=== PATIENT | female | born 1980 | race Two or more races ===

== ENCOUNTER 2018-11-11 11:40 | Inpatient (IN) | payer BC ==
[~2018-11-11 11:40] MED LIST: ROCURONIUM BROMIDE INJ 50 MG/5 ML VIAL IV ONE; SUCCINYLCHOLINE CHLORIDE INJ 200 MG/10 ML VIAL ONE
--- NOTE | 2018-11-11 12:10 | ER Document Report ---
ED Medical Screen (RME) - General Chief Complaint: Chest Pain Stated Complaint: BACK/CHEST PAIN, CHILLS Time Seen by Provider: 11/11/18 12:06 Notes: 38-year-old female patient reports onset this morning 9 AM of left posterior thoracic pain going into the anterior chest. She states that hurts to breathe. It also causes her to feel short of breath. LMP was 2 months ago. I have greeted and performed a rapid initial assessment of this patient. A comprehensive ED assessment and evaluation of the patient, analysis of test results and completion of the medical decision making process will be conducted by additional ED providers. TRAVEL OUTSIDE OF THE [place] IN LAST 30 DAYS: No - Related Data Allergies/Adverse Reactions: No Known Allergies Allergy (Verified 11/11/18 11:41) Past Medical History Renal/ Medical History: Denies: Hx Peritoneal Dialysis Physical Exam - Vital signs Vitals: Temp Pulse Resp BP Pulse Ox 97.7 F 72 18 116/72 100 11/11/18 11:45 11/11/18 11:45 11/11/18 11:45 11/11/18 11:45 11/11/18 11:45 Course - Vital Signs Vital signs: Temp Pulse Resp BP Pulse Ox 97.7 F 72 18 116/72 100 11/11/18 11:45 11/11/18 11:45 11/11/18 11:45 11/11/18 11:45 11/11/18 11:45
--- NOTE | 2018-11-11 12:10 | EKG REPORT ---
SEVERITY:- NORMAL ECG - SINUS RHYTHM : Confirmed by: Sarthak Benjamin MD 11-Nov-2018 12:10:20
[2018-11-11] MEDS ORDERED: METOCLOPRAMIDE HCL ORAL SOLN 10 MG/10 ML UDCUP PO ONE (12:31)
[2018-11-11] MEDS ORDERED: MAG HYDROX/AL HYDROX/SIMETH SUSP 30 ML UDCUP PO ONE (12:31)
[2018-11-11] MEDS ORDERED: LIDOCAINE 2% VISCOUS SOLN 20 ML UDCUP PO ONE (12:31)
--- NOTE | 2018-11-11 12:46 | RADIOLOGY REPORT (SQ) ---
EXAM DESCRIPTION: CHEST 2 VIEWS COMPLETED DATE/TIME: 11/11/2018 12:29 pm REASON FOR STUDY: L post. thoracic ant. chest pleuritic pain COMPARISON: None. EXAM PARAMETERS: NUMBER OF VIEWS: two views TECHNIQUE: Digital Frontal and Lateral radiographic views of the chest acquired. RADIATION DOSE: NA LIMITATIONS: none FINDINGS: LUNGS AND PLEURA: No opacities, masses or pneumothorax. No pleural effusion. MEDIASTINUM AND HILAR STRUCTURES: No masses or contour abnormalities. HEART AND VASCULAR STRUCTURES: Heart normal size. No evidence for failure. BONES: No acute findings. HARDWARE: None in the chest. OTHER: No other significant finding. IMPRESSION: NO ACUTE RADIOGRAPHIC FINDING IN THE CHEST. TECHNICAL DOCUMENTATION: JOB ID: [id number] [employer]- All Rights Reserved Reading location - IP/workstation name: [email or web address]
[2018-11-11 13:50] LABS: APPEARANCE,URINE SLIGHTLY-CLOUDY; BILIRUBIN,URINE NEGATIVE (NEGATIVE); COLOR,URINE YELLOW; GLUCOSE, URINE NEGATIVE (NEGATIVE); KETONES,URINE NEGATIVE (NEGATIVE); LEUKOCYTE ESTERASE,URINE TRACE (NEGATIVE); NITRITE,URINE NEGATIVE (NEGATIVE); PROTEIN,URINE NEGATIVE (NEGATIVE); URINE SPECIFIC GRAVITY 1.008
[2018-11-11 14:11] LABS: ABSOLUTE BASOPHILS # (AUTO) 0.1 10^3/uL (0.0-0.2); ABSOLUTE LYMPHOCYTES (AUTO) 1.1 10^3/uL (0.5-4.7); BASOPHILS % (AUTO) 0.4 % (0-2); EOSINOPHILS % (AUTO) 0.1 % (0-6); TOTAL CELLS COUNTED % (AUTO) 100 %
[2018-11-11 14:18] LABS: ABSOLUTE NEUT (AUTO) 12.3 10^3/uL (1.7-8.2); HEMATOCRIT 39.6 % (36.0-47.0); HEMOGLOBIN 13.1 g/dL (12.0-15.5); LYMPHOCYTES % (AUTO) 7.4 % (13-45); MEAN CORPUSCULAR HEMOGLOBIN 29.7 pg (27.0-33.4); MEAN CORPUSCULAR VOLUME 90 fl (80-97); MONOCYTES % (AUTO) 6.8 % (3-13); PLATELET COUNT 326 10^3/uL (150-450); RED BLOOD COUNT 4.41 10^6/uL (3.72-5.28); SEGMENTED NEUTROPHILS % (AUTO) 85.3 % (42-78); WHITE BLOOD COUNT 14.5 10^3/uL (4.0-10.5)
[2018-11-11 14:33] LABS: ALANINE AMINOTRANSFERASE 56 U/L (9-52); ALBUMIN 4.8 g/dL (3.5-5.0); ALKALINE PHOSPHATASE 76 U/L (38-126); ANION GAP 9 (5-19); ASPARTATE AMINO TRANSFERASE 197 U/L (14-36); BILIRUBIN,DIRECT 0.6 mg/dL (0.0-0.4); BILIRUBIN,TOTAL 1.5 mg/dL (0.2-1.3); BLOOD UREA NITROGEN 11 mg/dL (7-20); CALCIUM 9.6 mg/dL (8.4-10.2); CARBON DIOXIDE 25 mmol/L (22-30); CHLORIDE 106 mmol/L (98-107); GLUCOSE 114 mg/dL (75-110); POTASSIUM 3.9 mmol/L (3.6-5.0); SODIUM 139.7 mmol/L (137-145); TOTAL PROTEIN 7.9 g/dL (6.3-8.2)
[2018-11-11] MEDS ORDERED: HYDROCODONE/ACETAMINOPHEN 5-325 MG TABLET PO ONE (14:39)
--- NOTE | 2018-11-11 14:45 | ER Document Report ---
ED General - General Chief Complaint: Chest Pain Stated Complaint: BACK/CHEST PAIN, CHILLS Time Seen by Provider: 11/11/18 12:06 Mode of Arrival: Ambulatory Information source: Patient Notes: Chief complaint: abdominal pain: History of complain:( obtained from----patient) 38 years old female woke up this morning ate some rice, a couple of hours later started having severe epigastric pain was radiating to the back, associated with nausea and made her double up. Therefore present to the ED. Did not vomit. No diarrhea. No fever chills or other constitutional symptoms. Onset: Just prior to arrival sudden Duration: Just prior to arrival Severity: Severe Quality: Burning Context: Unknown Exacerbating factor and relieving factors: None REVIEW OF SYSTEMS: CONSTITUTIONAL : Denies fever, chills, or sweats. Denies recent illness. EENT: Denies eye, ear, throat, or mouth pain or symptoms. Denies nasal or sinus congestion or discharge. Denies throat, tongue, or mouth swelling or difficulty swallowing. CARDIOVASCULAR: Denies chest pain. Denies palpitations or racing or irregular heart beat. Denies ankle edema. RESPIRATORY: Denies cough, cold, or chest congestion. Denies shortness of breath, difficulty breathing, or wheezing. GASTROINTESTINAL: Denies distention. Denies nausea, vomiting, or diarrhea. Denies blood in vomitus, stools, or per rectum. Denies black, tarry stools. Denies constipation. GENITOURINARY: Denies difficulty urinating, painful urination, burning, frequency, blood in urine, or discharge. FEMALE GENITOURINARY: Denies vaginal bleeding, heavy or abnormal periods, irregular periods. Denies vaginal discharge or odor. MUSCULOSKELETAL: Denies back or neck pain or stiffness. Denies joint pain or swelling. SKIN: Denies rash, lesions or sores. HEMATOLOGIC : Denies easy bruising or bleeding. LYMPHATIC: Denies swollen, enlarged glands. NEUROLOGICAL: Denies confusion or altered mental status. Denies passing out or loss of consciousness. Denies dizziness or lightheadedness. Denies headache. Denies weakness or paralysis or loss of use of either side. Denies problems with gait or speech. Denies sensory loss, numbness, or tingling. Denies seizures. PSYCHIATRIC: Denies anxiety or stress. Denies depression, suicidal ideation, or homicidal ideation. ALL OTHER SYSTEMS REVIEWED AND NEGATIVE. PHYSICAL EXAMINATION: GENERAL: Well-appearing, well-nourished and in moderate to severe discomfort acute distress. HEAD: Atraumatic, normocephalic. EYES: Pupils equal round and reactive to light, extraocular movements intact, conjunctiva are normal. ENT: Nares patent, oropharynx clear without exudates. Moist mucous membranes. NECK: Normal range of motion, supple without lymphadenopathy LUNGS: Breath sounds clear to auscultation bilaterally and equal. No wheezes rales or rhonchi. HEART: Regular rate and rhythm without murmurs ABDOMEN: Soft, sharp tenderness over the epigastrium noted, nondistended abdomen. No guarding, no rebound. No masses appreciated. Female : deferred Musculoskeletal: Normal range of motion, no pitting or edema. No cyanosis. NEUROLOGICAL: Cranial nerves grossly intact. Normal speech, normal gait. Normal sensory, motor exams PSYCH: Normal mood, normal affect. SKIN: Warm, Dry, normal turgor, no rashes or lesions noted. Dictation was performed using [employer] voice recognition software TRAVEL OUTSIDE OF THE [place] IN LAST 30 DAYS: No - HPI Notes: Dictated - Related Data Allergies/Adverse Reactions: No Known Allergies Allergy (Verified 11/11/18 11:41) Past Medical History - Social History Smoking Status: Never Smoker Frequency of alcohol use: Rare Drug Abuse: None Lives with: Family Family History: Reviewed & Not Pertinent Patient has suicidal ideation: No Patient has homicidal ideation: No Renal/ Medical History: Denies: Hx Peritoneal Dialysis Review of Systems - Review of Systems Notes: Dictated Physical Exam - Vital signs Vitals: Temp Pulse Resp BP Pulse Ox 97.7 F 72 18 116/72 100 11/11/18 11:45 11/11/18 11:45 11/11/18 11:45 11/11/18 11:45 11/11/18 11:45 - Notes Notes: Dictated Course - Re-evaluation Re-evalutation: 11/11/18 14:40 Reexamined, patient feeling better but the pain has not gone completely. Therefore ultrasound of the gallbladder and T-spine x-ray which was done. States the most of the pain coming from the back to the front. 11/11/18 16:[address] Cherry was called and case was discussed. He is going to evaluate the patient in the ED. - Vital Signs Vital signs: Temp Pulse Resp BP Pulse Ox 97.7 F 72 13 101/61 100 11/11/18 11:45 11/11/18 11:45 11/11/18 14:29 11/11/18 14:29 11/11/18 14:29 - Laboratory Result Diagrams: 11/11/18 13:43 11/11/18 13:43 Laboratory results interpreted by me: 11/11/18 11/11/18 11/11/18 13:36 13:43 13:43 WBC 14.5 H Seg Neutrophils % 85.3 H Lymphocytes % 7.4 L Absolute Neutrophils 12.3 H Glucose 114 H Total Bilirubin 1.5 H Direct Bilirubin 0.6 H AST 197 H ALT 56 H Urine Urobilinogen 2.0 H Ur Leukocyte Esterase TRACE H - Diagnostic Test Radiology reviewed: Reports reviewed - 2 cm large stone noted in the gallbladder Discharge - Discharge Clinical Impression: Acute abdominal pain, Abnormal liver function test Cholelithiasis Qualifiers: Cholelithiasis location: gallbladder Cholecystitis presence: with cholecystitis Cholecystitis acuity: acute Biliary obstruction: with biliary obstruction Qualified Code(s): K80.01 - Calculus of gallbladder with acute cholecystitis with obstruction Condition: Fair Disposition: ADMITTED INPATIENT Admitting Provider: Surgicalist
[2018-11-11] MEDS ORDERED: PANTOPRAZOLE SODIUM 40 MG VIAL IV ONE (15:24)
--- NOTE | 2018-11-11 15:35 | RADIOLOGY REPORT (SQ) ---
EXAM DESCRIPTION: U/S ABDOMEN LIMITED W/O DOP COMPLETED DATE/TIME: 11/11/2018 3:23 pm REASON FOR STUDY: Abdominal pain rule out cholecystitis COMPARISON: None. TECHNIQUE: Dynamic and static grayscale images acquired of the abdomen and recorded on PACS. Additio nal selected color Doppler and spectral images recorded. LIMITATIONS: None. FINDINGS: PANCREAS: The pancreas has a normal ultrasound appearance. Body and tail are obscured by overlying bowel gas. LIVER: No masses. Echotexture normal. LIVER VASCULATURE: Normal directional flow of the main portal vein and hepatic veins. GALLBLADDER: Cholelithiasis, large stone within the neck of the gallbladder measuring 2 cm in transve rse dimension. No wall thickening or pericholecystic fluid. ULTRASOUND-DETECTED FERRELL'S SIGN: Negative. INTRAHEPATIC DUCTS AND COMMON DUCT: CBD and intrahepatic ducts normal caliber. No filling defects. INFERIOR VENA CAVA: Normal flow. AORTA: No aneurysm. RIGHT KIDNEY: Normal size. Lobulated contour, normal variant. Normal echogenicity. No solid or cinthya picious masses. No hydronephrosis. No calcifications. PERITONEAL AND RIGHT PLEURAL SPACE: No ascites or effusions. OTHER: No other significant findings. IMPRESSION: Cholelithiasis with a large stone measuring 2 cm in transverse dimension. No sonographi c evidence of acute cholecystitis. TECHNICAL DOCUMENTATION: JOB ID: [id number] [employer]- All Rights Reserved Reading location - IP/workstation name: [email or web address]
[2018-11-11 17:11] LABS: LIPASE 963.8 U/L (23-300)
[2018-11-11] MEDS ORDERED: DEXTROSE 5%-LACTATED RINGERS 1,000 ML IV PRN (17:45)
[2018-11-11] MEDS ORDERED: HYDROMORPHONE HCL INJ/PF 2 MG/ML AMPULE IV PRN (17:54)
[2018-11-11] MEDS ORDERED: HYDROMORPHONE HCL INJ/PF 2 MG/ML AMPULE IV ONE (18:00)
[2018-11-11] MEDS ORDERED: ONDANSETRON HCL INJ/PF 4 MG/2 ML SDV IV ONE (18:00)
[2018-11-11] MEDS: ONDANSETRON HCL INJ/PF 4 MG/2 ML SDV IV PRN (19:29)
[2018-11-11] MEDS ORDERED: PIPERACILLIN/TAZOBACTAM 3.375 GM VIAL IV PRN (20:32)
[2018-11-11] MEDS ORDERED: PIPERACILLIN SODIUM/TAZOBACTAM 3.375 GM in NORMAL SALINE 100 ML IV SCH (21:00)
[2018-11-11] MEDS ORDERED: FAMOTIDINE INJ/PF 20 MG/2 ML SDV IV ONE (22:25)
[2018-11-11] MEDS ORDERED: DIPHENHYDRAMINE HCL 50 MG/ML VIAL IV ONE (22:26)
[2018-11-12] MEDS ORDERED: METRONIDAZOLE 500 MG/NS RTU 500 MG/100 ML RTUPB IV ONE (04:00)
[2018-11-12] MEDS ORDERED: CIPROFLOXACIN 400 MG/D5W RTU 400 MG/200 ML RTUPB IV ONE ×2 (04:00→17:52)
[2018-11-12 05:17] LABS: ABSOLUTE BASOPHILS # (AUTO) 0.1 10^3/uL (0.0-0.2); ABSOLUTE EOSINOPHILS # (AUTO) 0.1 10^3/uL (0.0-0.6); ABSOLUTE LYMPHOCYTES (AUTO) 1.9 10^3/uL (0.5-4.7); ABSOLUTE MONOCYTES (AUTO) 0.9 10^3/uL (0.1-1.4); ABSOLUTE NEUT (AUTO) 9.1 10^3/uL (1.7-8.2); BASOPHILS % (AUTO) 0.8 % (0-2); EOSINOPHILS % (AUTO) 0.5 % (0-6); HEMATOCRIT 39.5 % (36.0-47.0); LYMPHOCYTES % (AUTO) 15.5 % (13-45); MEAN CORPUSCULAR HEMOGLOBIN 29.6 pg (27.0-33.4); MEAN CORPUSCULAR HGB CONC 32.8 g/dL (32.0-36.0); MEAN CORPUSCULAR VOLUME 90 fl (80-97); MONOCYTES % (AUTO) 7.1 % (3-13); PLATELET COUNT 216 10^3/uL (150-450); RED BLOOD COUNT 4.39 10^6/uL (3.72-5.28); RED CELL DISTRIBUTION WIDTH 13.2 % (11.5-14.0); SEGMENTED NEUTROPHILS % (AUTO) 76.1 % (42-78); TOTAL CELLS COUNTED % (AUTO) 100 %
[2018-11-12 05:39] LABS: ALANINE AMINOTRANSFERASE 50 U/L (9-52); ALBUMIN 3.8 g/dL (3.5-5.0); ALKALINE PHOSPHATASE 55 U/L (38-126); AMYLASE 106 U/L (30-110); ANION GAP 6 (5-19); ASPARTATE AMINO TRANSFERASE 70 U/L (14-36); BILIRUBIN,DIRECT 0.2 mg/dL (0.0-0.4); BILIRUBIN,TOTAL 1.6 mg/dL (0.2-1.3); BLOOD UREA NITROGEN 8 mg/dL (7-20); CALCIUM 8.8 mg/dL (8.4-10.2); CARBON DIOXIDE 22 mmol/L (22-30); CHLORIDE 111 mmol/L (98-107); GLUCOSE 118 mg/dL (75-110); LIPASE 92.8 U/L (23-300); POTASSIUM 4.1 mmol/L (3.6-5.0); SODIUM 139.4 mmol/L (137-145); TOTAL PROTEIN 6.7 g/dL (6.3-8.2)
[2018-11-12] MEDS ORDERED: CIPROFLOXACIN 400 MG/D5W RTU 400 MG/200 ML RTUPB IV SCH ×2 (06:00→18:00)
[2018-11-12] MEDS ORDERED: METRONIDAZOLE 500 MG/NS RTU 500 MG/100 ML RTUPB IV SCH ×2 (06:00→14:00)
--- NOTE | 2018-11-12 07:13 | PDOC H&P ---
History of Present Illness Admission Date/PCP: 11/11/18 16:33 Patient complains of: Right upper quadrant pain and back pain History of Present Illness: ZEE PINO is a 38 year old female with a 1 day history of right upper quadrant and back pain. The patient ate breakfast with fried sausages and fried eggs. She then began to have sharp stabbing right upper quadrant pain that born through to the middle of her back. This was accompanied by nausea and vomiting. The pain did not relent, and she presented to the emergency department. She rates her pain as 8 out of 10. The pain is constant. Nothing makes it better. Palpation makes it worse. Patient denies chest pain, shortness of breath, dizziness, orthostasis, fatigue, malaise, sore throat, fevers, chills. The patient denies a history of IV drug abuse or alcohol abuse. She has no history of hepatitis exposure. Social History Lives with: Family Smoking Status: Never Smoker Family History Family History: Reviewed & Not Pertinent Parental Family History Reviewed: Yes Children Family History Reviewed: Yes Sibling(s) Family History Reviewed.: Yes Medication/Allergy Allergies/Adverse Reactions: Penicillins Allergy (Intermediate, Verified 11/11/18 22:48) Facial edema and rash tazobactam [From Zosyn] Allergy (Intermediate, Verified 11/11/18 22:46) Facial edema and rash piperacillin [From Zosyn] Allergy (Verified 11/11/18 22:45) Review of Systems Constitutional: ABSENT: chills, fatigue, fever(s), headache(s) Eyes: ABSENT: visual disturbances Ears: ABSENT: hearing changes Nose, Mouth, and Throat: ABSENT: sore throat Cardiovascular: ABSENT: chest pain, palpitations Respiratory: ABSENT: cough, dyspnea Gastrointestinal: PRESENT: abdominal pain, nausea, vomiting. ABSENT: diarrhea, dysphagia, heartburn, hematemesis, melena Musculoskeletal: PRESENT: back pain Integumentary: ABSENT: pruritus, rash Neurological: ABSENT: confusion, convulsions, dizziness Psychiatric: ABSENT: anxiety, depression Endocrine: ABSENT: cold intolerance, heat intolerance Hematologic/Lymphatic: ABSENT: easy bleeding, easy bruising Physical Exam Vital Signs: Temp Pulse Resp BP Pulse Ox 98.5 F 72 22 H 98/82 L 99 11/11/18 16:35 11/11/18 11:45 11/11/18 19:01 11/11/18 19:01 11/11/18 19:01 Intake & Output 11/10/18 11/11/18 11/12/18 06:59 06:59 06:59 Weight 54 kg General appearance: PRESENT: cooperative. ABSENT: no acute distress Head exam: ABSENT: atraumatic, normocephalic Eye exam: PRESENT: EOMI, PERRLA. ABSENT: scleral icterus Mouth exam: PRESENT: moist, neck supple Teeth exam: ABSENT: poor dentation Neck exam: ABSENT: meningismus, tenderness, thyromegaly, tracheal deviation Respiratory exam: PRESENT: clear to auscultation edenilson, unlabored. ABSENT: chest wall tenderness, tachypnea, wheezes Cardiovascular exam: PRESENT: RRR Pulses: PRESENT: normal radial pulses Vascular exam: PRESENT: normal capillary refill. ABSENT: pallor GI/Abdominal exam: PRESENT: Izquierdo's sign, soft, tenderness - Right upper quadrant. ABSENT: distended Rectal exam: PRESENT: deferred Extremities exam: ABSENT: clubbing Musculoskeletal exam: ABSENT: deformity Neurological exam: PRESENT: alert, awake, oriented to person, oriented to place, oriented to time, oriented to situation, CN II-XII grossly intact. ABSENT: motor sensory deficit Psychiatric exam: ABSENT: agitated, anxious, depressed Focused psych exam: ABSENT: delusional Skin exam: ABSENT: cyanosis, erythema, jaundice Results Laboratory Results: 11/11/18 13:43 11/11/18 13:43 11/11/18 11/11/18 11/11/18 13:36 13:43 13:43 WBC 14.5 H RBC 4.41 Hgb 13.1 Hct 39.6 MCV 90 MCH 29.7 MCHC 33.0 RDW 13.0 Plt Count 326 Seg Neutrophils % 85.3 H Lymphocytes % 7.4 L Monocytes % 6.8 Eosinophils % 0.1 Basophils % 0.4 Absolute Neutrophils 12.3 H Absolute Lymphocytes 1.1 Absolute Monocytes 1.0 Absolute Eosinophils 0.0 Absolute Basophils 0.1 Sodium 139.7 Potassium 3.9 Chloride 106 Carbon Dioxide 25 Anion Gap 9 BUN 11 Creatinine 0.61 Est GFR ( Amer) > 60 Est GFR (Non-Af Amer) > 60 Glucose 114 H Calcium 9.6 Total Bilirubin 1.5 H AST 197 H ALT 56 H Alkaline Phosphatase 76 Total Protein 7.9 Albumin 4.8 Amylase Lipase Serum HCG, Qual Urine Color YELLOW Urine Appearance SLIGHTLY-CLOUDY Urine pH 7.0 Ur Specific [place] 1.008 Urine Protein NEGATIVE Urine Glucose (UA) NEGATIVE Urine Ketones NEGATIVE Urine Blood NEGATIVE Urine Nitrite NEGATIVE Ur Leukocyte Esterase TRACE H Urine WBC (Auto) 3 Urine RBC (Auto) 1 11/11/18 11/11/18 13:43 13:43 WBC RBC Hgb Hct MCV MCH MCHC RDW Plt Count Seg Neutrophils % Lymphocytes % Monocytes % Eosinophils % Basophils % Absolute Neutrophils Absolute Lymphocytes Absolute Monocytes Absolute Eosinophils Absolute Basophils Sodium Potassium Chloride Carbon Dioxide Anion Gap BUN Creatinine Est GFR ( Amer) Est GFR (Non-Af Amer) Glucose Calcium Total Bilirubin AST ALT Alkaline Phosphatase Total Protein Albumin Amylase 154 H Lipase 963.8 H Serum HCG, Qual NEGATIVE Urine Color Urine Appearance Urine pH Ur Specific [place] Urine Protein Urine Glucose (UA) Urine Ketones Urine Blood Urine Nitrite Ur Leukocyte Esterase Urine WBC (Auto) Urine RBC (Auto) Impressions: Chest X-Ray 11/11/18 12:08 IMPRESSION: NO ACUTE RADIOGRAPHIC FINDING IN THE CHEST. Abdomen Ultrasound 11/11/18 14:38 IMPRESSION: Cholelithiasis with a large stone measuring 2 cm in transverse dimension. No sonographic evidence of acute cholecystitis. Assessment & Plan - Diagnosis (1) Cholecystitis with cholelithiasis Qualifiers: Cholelithiasis location: gallbladder Cholecystitis acuity: acute Biliary obstruction: without biliary obstruction Qualified Code(s): K80.00 - Calculus of gallbladder with acute cholecystitis without obstruction Is this a current diagnosis for this admission?: Yes (2) Biliary acute pancreatitis Qualifiers: Acute pancreatitis complication: no infection or necrosis Qualified Code(s): K85.10 - Biliary acute pancreatitis without necrosis or infection Is this a current diagnosis for this admission?: Yes - Plan Summary Plan Summary: This is a 38-year-old female with right upper quadrant pain and back pain after eating a fatty meal. The patient has slight elevation of her liver function tests as well as elevation of her amylase and lipase. I believe the patient is experiencing cholecystitis with possible biliary pancreatitis. Patient has no history of alcohol abuse or drug abuse. I have recommended inpatient admission, administration of fluids and antibiotics, and surgical intervention once her pancreatitis appears to be resolving. This is been discussed with the patient and her at length. They are in agreement with the treatment plan.
[2018-11-12] MEDS ORDERED: FENTANYL CITRATE INJ/PF 100 MCG/2 ML AMPUL ONE (10:54)
[2018-11-12] MEDS ORDERED: HYDROMORPHONE HCL INJ/PF 2 MG/ML AMPULE ONE (12:43)
[2018-11-12] MEDS ORDERED: MIDAZOLAM 2 MG/2 ML INJ ONE (12:44)
[2018-11-12] MEDS ORDERED: DEXAMETHASONE SOD PHOSPHATE INJ 4 MG/1 ML VIAL ONE (12:44)
[2018-11-12] MEDS ORDERED: PROPOFOL INJ 200 MG/20 ML VIAL IV ONE (12:44)
[2018-11-12] MEDS ORDERED: ACETAMINOPHEN 1,000 MG/100 ML RTUPB IV ONE (12:44)
[2018-11-12] MEDS ORDERED: ONDANSETRON HCL INJ/PF 4 MG/2 ML SDV ONE ×3 (12:44→16:41)
[2018-11-12] MEDS ORDERED: BUPIVACAINE HCL 0.25 % INJ/PF (2.5 MG/1 ML) 30 ML VIAL ONE (13:09)
[2018-11-12] MEDS ORDERED: DIPHENHYDRAMINE HCL 50 MG/ML VIAL IV PRN (13:53)
[2018-11-12] MEDS ORDERED: FENTANYL CITRATE INJ/PF 100 MCG/2 ML AMPUL IV PRN ×3 (13:53)
[2018-11-12] MEDS ORDERED: MEPERIDINE HCL/PF INJ 25 MG/1 ML DISP.SYRIN IV PRN (13:53)
[2018-11-12] MEDS ORDERED: PROMETHAZINE HCL INJ 25 MG/1 ML VIAL IV PRN (13:53)
[2018-11-12] MEDS ORDERED: GLUCAGON,HUMAN RECOMB 1 MG INJ ONE (14:42)
--- NOTE | 2018-11-12 15:32 | RADIOLOGY REPORT (SQ) ---
EXAM DESCRIPTION: CHOLANGIOGRAM OPERATIVE COMPLETED DATE/TIME: 11/12/2018 3:15 pm REASON FOR STUDY: CHOLEDUCOLATHIASIS COMPARISON: 11/11/2018 FLUOROSCOPY TIME: 1.5 minutes 6 images saved to PACS. TECHNIQUE: 6 images were obtained from an intraoperative cholangiogram. LIMITATIONS: None. FINDINGS: Visualized common duct and duodenum without filling defects. IMPRESSION: INTRAOPERATIVE CHOLANGIOGRAM. COMMENT: Quality ID [id number]: Final reports for procedures using fluoroscopy that document radiation exp osure indices, or exposure time and number of fluorographic images (if radiation exposure indices are not available) TECHNICAL DOCUMENTATION: JOB ID: [id number] [employer]- All Rights Reserved Reading location - IP/workstation name: [email or web address]
--- NOTE | 2018-11-12 15:40 | Operative Report ---
Nonrecallable Operative Report DATE OF SURGERY: 11/12/18 PREOPERATIVE DIAGNOSIS: 1. Biliary pancreatitis. 2. Acute cholecystitis. POSTOPERATIVE DIAGNOSIS: Same as above OPERATION: Laparoscopic cholecystectomy with intraoperative cholangiogram. SURGEON: SHARON KEANE ANESTHESIA: GA TISSUE REMOVED OR ALTERED: Gallbladder COMPLICATIONS: None apparent ESTIMATED BLOOD LOSS: 30 cc PROCEDURE: Drains/implants: None. Procedure in detail: After informed consent was obtained, the patient was brought into the operating room and laid in the supine position. The area of the abdomen was prepped and draped in a normal sterile fashion. An infraumbilical incision was created with a 15 blade scalpel. Dissection was car ried through the subcutaneous tissue using sharp and blunt means. The cicatrix was identified, grasped with a Donovan clamp, and retracted upwards. The linea alba fascia was incised sharply, the abdomen was entered sharply. The balloon trocar was inserted, and pneumoperitoneum was achieved. Next, a subxiphoid 5 mm port was placed under direct laparoscopic visualization. 2 more 5 mm ports were placed in the right upper quadrant in similar fashion. Atraumatic graspers were placed through the 5 mm ports. The gallbladder was retracted cephalad and laterally. The gallbladder was tense and distended. There was obvious acute cholecystitis present. There was a significant inflammatory response throughout the gallbladder. Dissection was begun at the infundibulum. The cystic artery was easily identified. The infundibulum was traced down to what was thought to be the cystic duct. This was very dilated. There was a large gallstone wedged at the infundibulum. This was milked up. Dissection was carried out in the triangle of Calot. Once the critical view of safety was obtained, the cystic artery was clipped and cut with laparoscopic instruments and an incision was created on the infundibulum, to avoid injury to any important ductal structures. An attempt to introduce a cholangiogram catheter into the cystic duct was made. This could not be easily performed. Secondary to this, the gallbladder was elevated and completely divided at the infundibulum. The gallbladder was then removed from the liver using a mixture of blunt dissection, sharp dissection, and electrocautery. Once the gallbladder was removed, it was placed into an Endo Catch bag and pulled out through the umbilicus. The camera was reinserted. The infundibulum was again inspected. A cholangiogram catheter was introduced into the infundibulum. Clips were used to hold the cholangiogram catheter in place in the infundibulum. Cholangiograms were then shot. Isovue was seen to course through the cystic duct, and into the common bile duct. Dye was seen extending up into the right and left hepatic ducts and radicles. The Isovue coursed down the common bile duct to the sphincter of Oddi. No contrast flowed into the duodenum initially. Glucagon was then given. Dye was then found to course into the duodenum. No filling defects could be identified throughout the ductal system consistent with intraductal stones. Once this was confirmed, a PDS Endoloop was secured around the infundibulum/cystic duct junction. Once this was completed the abdomen was copiously irrigated and suctioned until the effluent was clear. Next the 5 mm trochars were removed under direct laparoscopic visualization. The infraumbilical trocar was removed, and pneumoperitoneum was relieved. The infraumbilical fascia was then closed using 0 Vicryl suture in [id number] fashion. The overlying skin was closed using 4-0 Vicryl Rapide suture in subcuticular fashion. A dressing was placed, and the procedure was concluded. All sponge, instrument, and needle counts were correct x2. Condition: Stable.
[2018-11-12] MEDS ORDERED: SCOPOLAMINE HYDROBROMIDE 1.5 MG PATCH.TD72 ONE (16:41)
[2018-11-12] MEDS ORDERED: HYDROCODONE/ACETAMINOPHEN 10-325 MG TABLET PO PRN (18:00)
[2018-11-12] MEDS: ONDANSETRON HCL INJ/PF 4 MG/2 ML SDV IV PRN (22:36)
[2018-11-13 06:42] LABS: ALANINE AMINOTRANSFERASE 52 U/L (9-52); ALBUMIN 3.5 g/dL (3.5-5.0); ALKALINE PHOSPHATASE 50 U/L (38-126); ANION GAP 6 (5-19); ASPARTATE AMINO TRANSFERASE 38 U/L (14-36); BILIRUBIN,DIRECT 0.1 mg/dL (0.0-0.4); BILIRUBIN,TOTAL 1.2 mg/dL (0.2-1.3); BLOOD UREA NITROGEN 8 mg/dL (7-20); CALCIUM 8.9 mg/dL (8.4-10.2); CARBON DIOXIDE 24 mmol/L (22-30); CHLORIDE 110 mmol/L (98-107); GLUCOSE 94 mg/dL (75-110); LIPASE 51.7 U/L (23-300); SODIUM 139.7 mmol/L (137-145); TOTAL PROTEIN 6.1 g/dL (6.3-8.2)
--- NOTE | 2018-11-13 07:26 | PDOC DISCHARGE SUMMARY ---
General - Admit/Disc Date/PCP Admission Date/Primary Care Provider: 11/11/18 16:33 Discharge Date: 11/13/18 - Discharge Diagnosis (1) Cholecystitis with cholelithiasis Is this a current diagnosis for this admission?: Yes (2) Biliary acute pancreatitis Is this a current diagnosis for this admission?: Yes - Additional Information Resuscitation Status: Full Code Discharge Diet: As Tolerated Discharge Activity: No Lifting Over 10 Pounds Home Medications: No Home Medications 11/12/18 History of Present Illness History of Present Illness: ZEE PINO is a 38 year old female with a 1 day history of right upper quadrant and back pain. The patient ate breakfast with fried sausages and fried eggs. She then began to have sharp stabbing right upper quadrant pain that born through to the middle of her back. This was accompanied by nausea and vomiting. The pain did not relent, and she presented to the emergency department. She rates her pain as 8 out of 10. The pain is constant. Nothing makes it better. Palpation makes it worse. Patient denies chest pain, shortness of breath, dizziness, orthostasis, fatigue, malaise, sore throat, fevers, chills. The patient denies a history of IV drug abuse or alcohol abuse. She has no history of hepatitis exposure. Hospital Course Hospital Course: Patient was admitted to the hospital for biliary pancreatitis and acute cholecystitis. She was begun on intravenous antibiotics. The patient had flushing and irritation with Zosyn. She was changed to Cipro and Flagyl. Her pancreatic enzymes were improved on hospital day #2. Secondary to this, the patient was taken to the operating room for laparoscopic cholecystectomy with intraoperative cholangiogram. The patient's gallbladder was successfully removed, and her bile duct appeared clear of any stones or debris. The patient was then taken to the floor in stable condition. The patient did well on the floor. She had some nausea after surgery, however this subsided. Her morning lab work is essentially normal. The patient is feeling much better today. At this time it was felt that the patient had reached maximal hospital benefit, and was fit for discharge. Physical Exam Vital Signs: Temp Pulse Resp BP Pulse Ox 98.6 F 59 L 18 97/52 L 100 11/13/18 03:52 11/13/18 03:52 11/13/18 03:52 11/13/18 03:52 11/13/18 03:52 Intake & Output 11/12/18 11/13/18 11/14/18 06:59 06:59 06:59 Intake Total 1300 3410 Output Total 1230 Balance 1300 2180 Weight 54 kg Results Laboratory Results: 11/12/18 05:00 11/13/18 06:06 11/13/18 06:06 Sodium 139.7 Potassium 4.0 Chloride 110 H Carbon Dioxide 24 Anion Gap 6 BUN 8 Creatinine 0.61 Est GFR ( Amer) > 60 Est GFR (Non-Af Amer) > 60 Glucose 94 Calcium 8.9 Total Bilirubin 1.2 AST 38 H ALT 52 Alkaline Phosphatase 50 Total Protein 6.1 L Albumin 3.5 Lipase 51.7 Impressions: Chest X-Ray 11/11/18 12:08 IMPRESSION: NO ACUTE RADIOGRAPHIC FINDING IN THE CHEST. Abdomen Ultrasound 11/11/18 14:38 IMPRESSION: Cholelithiasis with a large stone measuring 2 cm in transverse dimension. No sonographic evidence of acute cholecystitis. Cholangiogram 11/12/18 13:45 IMPRESSION: INTRAOPERATIVE CHOLANGIOGRAM. Qualifiers - * PATIENT BEING DISCHARGED WITH ANY OF THE FOLLOWING DIAGNOSIS: No Plan Discharge Plan: Discharge home. Diet as tolerated. Activity: No lifting greater than 10 pounds x 2 weeks. Follow-up with me in 7-10 days at [facility]. [place] 10 /325 mg p.o. every 6 hours as needed for pain. Okay to shower starting tomorrow. No tub baths, hot tubs, or swimming pools times 2 weeks. Time Spent: Less than 30 Minutes
[2018-11-13 09:13] VITALS: BP 92/52
== END 2018-11-13 09:53 | disposition home or self-care (01) | DRG 418 ==
LOC: ER 11:40 → EH 16:33 → 2S 11-12 08:45
PROVIDERS: ADMIT Surgery; ATTEND Surgery
PROC: BF111ZZ Fluoroscopy of Biliary and Pancreatic Ducts using Low Osmolar Contrast (ICD-10-PCS; 2018-11-12)
PROC: 0FT44ZZ Resection of Gallbladder, Percutaneous Endoscopic Approach (ICD-10-PCS; principal; 2018-11-12 14:30)
DX: K85.10 Biliary acute pancreatitis without necrosis or infection (principal); K80.00 Calculus of gallbladder with acute cholecystitis without obstruction; Z88.0 Allergy status to penicillin; Z88.8 Allergy status to other drugs, medicaments and biological substances
CPT/HCPCS: 36415; 71046; 74300; 76705; 790; 80053; 81001; 82150; 83690; 84703; 85025; 85379; 88304; 93005; 93010; 96374; 99285; J0131; J0330; J0744; J1100; J1170; J1200; J1610; J2250; J2405; J2543; J2704; J3010; J3490; Q9967; S0028; S0164